=== PATIENT | female | born 1955 | race African-American/Black ===

== ENCOUNTER 2023-10-28 10:25 | Emergency (ER) | payer OTHER ==
[~2023-10-28] VITALS: Ht 175.3 cm; Wt 94.0 kg
[2023-10-28 10:35] VITALS: O2SAT 98
[2023-10-28] MEDS ORDERED: ACETAMINOPHEN 325MG TABLET PO ONE (12:30)
[2023-10-28] MEDS ORDERED: IBUPROFEN 600MG TABLET PO ONE (12:30)
[2023-10-28] MEDS ORDERED: IBUP-2028 MT (13:44)
[2023-10-28 17:00] VITALS: BP 165/89; PULSE 76; RESP 20; TEMP 98.3
== END 2023-10-28 19:04 | disposition home or self-care (01) ==
LOC: ER 10:25
DX: M54.50 Low back pain, unspecified (principal); I11.0 Hypertensive heart disease with heart failure; I50.9 Heart failure, unspecified; W18.39XA Other fall on same level, initial encounter; Y93.89 Activity, other specified; Y92.89 Other specified places as the place of occurrence of the external cause; Y99.8 Other external cause status
CPT/HCPCS: 72131; 99284

== ENCOUNTER 2023-12-11 15:22 | Emergency (ER) | payer OTHER ==
[~2023-12-11] VITALS: Ht 170.2 cm; Wt 91.0 kg
[~2023-12-11 15:22] MED LIST: IBUP-2028 MT
[2023-12-11 15:32] VITALS: O2SAT 98
[2023-12-11 16:00] VITALS: TEMP 98.7
[2023-12-11 16:33] LABS: BASOPHILS % 0.5 % (0.0-2.0); EOSINOPHILS % 0.1 % (0.0-5.0); HEMATOCRIT. 34.4 % (36.0-48.0); HEMOGLOBIN. 11.3 g/dL (12.0-16.0); LYMPHOCYTES % 16.4 % (20.0-50.0); MEAN CORPUSCULAR HEMOGLOBIN 29.9 pg (28.0-32.0); MEAN CORPUSCULAR HGB CONC 32.8 g/dL (31.0-37.0); MEAN CORPUSCULAR VOLUME 91.2 fL (81.0-99.0); MEAN PLATELET VOLUME 7.2 fl (7.4-10.4); MONOCYTES % 4.4 % (2.0-8.0); NEUTROPHILS % 78.6 % (40.0-76.0); PLATELET 247 x1000/uL (130-400); RED BLOOD CELL COUNT 3.77 mill/uL (4.2-5.4); RED CELL DISTRIBUTION WIDTH 15.6 % (11.6-14.6); WHITE BLOOD COUNT 8.1 x1000/uL (4.5-11.0)
[2023-12-11 16:53] LABS: ALANINE AMINOTRANSFERASE < 7 IU/L (10-49); ALBUMIN 4.1 g/dL (3.2-4.8); ASPARTATE AMINOTRANSFERASE 16 IU/L (<34); BILIRUBIN TOTAL 0.4 mg/dL (0.1-1.0); CALCIUM 9.2 mg/dL (8.7-10.4); CARBON DIOXIDE 26 mEq/L (21-32); CHLORIDE 103 mEq/L (98-107); CREATININE 2.4 mg/dL (0.6-1.0); GLUCOSE 139 mg/dL (70-105); POTASSIUM 4.3 mEq/L (3.5-5.1); PROTEIN TOTAL 7.4 g/dL (6.0-8.3); SODIUM 140 mEq/L (136-145); TROPONIN I HIGH SENSITIVITY 25 ng/L (3.0-34); UREA NITROGEN BLOOD 39 mg/dL (9-23)
[2023-12-11] MEDS ORDERED: SENN-257 MT (19:13)
[2023-12-11] MEDS ORDERED: POLY17PO3 MT (19:13)
[2023-12-11] MEDS ORDERED: FEO PR (19:13)
[2023-12-11 20:30] VITALS: BP 131/69; PULSE 75; RESP 13
== END 2023-12-11 21:03 | disposition home or self-care (01) ==
LOC: ER 15:22 → EDBEDREQ 18:09 → ER 21:03
DX: K59.00 Constipation, unspecified (principal); I11.0 Hypertensive heart disease with heart failure; I50.9 Heart failure, unspecified; E11.9 Type 2 diabetes mellitus without complications; Z20.822 Contact with and (suspected) exposure to COVID-19
CPT/HCPCS: 36415; 71045; 80053; 84484; 85025; 87426; 87804; 93005; 99285

== ENCOUNTER 2024-02-26 11:37 | Emergency (ER) | payer OTHER ==
[~2024-02-26] VITALS: Ht 165.1 cm; Wt 74.0 kg
[~2024-02-26 11:37] MED LIST changes: +FEO PR; +POLY17PO3 MT; +SENN-257 MT
[2024-02-26 11:40] VITALS: O2SAT 98
[2024-02-26 12:55] LABS: BASOPHILS % 0.8 % (0.0-2.0); EOSINOPHILS % 2.3 % (0.0-5.0); HEMATOCRIT. 31.3 % (36.0-48.0); HEMOGLOBIN. 10.6 g/dL (12.0-16.0); MEAN CORPUSCULAR VOLUME 91.1 fL (81.0-99.0); MEAN PLATELET VOLUME 6.9 fl (7.4-10.4); MONOCYTES % 5.6 % (2.0-8.0); NEUTROPHILS % 69.3 % (40.0-76.0); PLATELET 238 x1000/uL (130-400); RED BLOOD CELL COUNT 3.43 mill/uL (4.2-5.4); WHITE BLOOD COUNT 6.7 x1000/uL (4.5-11.0)
[2024-02-26 13:21] LABS: CHLORIDE 106 mEq/L (98-107); POTASSIUM 4.7 mEq/L (3.5-5.1); SODIUM 142 mEq/L (136-145)
[2024-02-26 13:22] LABS: CARBON DIOXIDE 29 mEq/L (21-32)
[2024-02-26 13:23] LABS: CALCIUM 9.2 mg/dL (8.7-10.4)
[2024-02-26 13:27] LABS: CREATININE 2.1 mg/dL (0.6-1.0); GLUCOSE 107 mg/dL (70-105); TROPONIN I HIGH SENSITIVITY 27 ng/L (3.0-34)
[2024-02-26 13:28] LABS: UREA NITROGEN BLOOD 31 mg/dL (9-23)
[2024-02-26 13:29] LABS: ALANINE AMINOTRANSFERASE < 7 IU/L (10-49); ASPARTATE AMINOTRANSFERASE 13 IU/L (<34)
[2024-02-26 13:30] LABS: BILIRUBIN TOTAL 0.5 mg/dL (0.1-1.0); PROTEIN TOTAL 7.6 g/dL (6.0-8.3)
[2024-02-26] MEDS: LIDOCAINE HCL 1% 20ML VIAL (Pyxis) INJ INFIL ONE (13:51)
[2024-02-26 13:53] LABS: PARTIAL THROMBOPLASTIN TIME 25.4 sec (23.4-31.0); PROTHROMBIN TIME 10.8 sec (9.6-11.0)
[2024-02-26] MEDS: HYDROCODONE/ACETAMINOPHEN 5/325MG TABLET PO ONE (14:30)
[2024-02-26 19:07] VITALS: BP 130/69; PULSE 66; RESP 14; TEMP 98
== END 2024-02-26 19:40 | disposition short-term general hospital (02) ==
LOC: ER 11:37
DX: S80.12XA Contusion of left lower leg, initial encounter (principal); I11.0 Hypertensive heart disease with heart failure; I50.9 Heart failure, unspecified; F03.90 Unspecified dementia, unspecified severity, without behavioral disturbance, psychotic disturbance, mood disturbance, and anxiety; E11.9 Type 2 diabetes mellitus without complications; Z86.73 Personal history of transient ischemic attack (TIA), and cerebral infarction without residual deficits; Z79.899 Other long term (current) drug therapy; N28.9 Disorder of kidney and ureter, unspecified; W18.39XA Other fall on same level, initial encounter; Y93.89 Activity, other specified; Y92.89 Other specified places as the place of occurrence of the external cause; Y99.8 Other external cause status
CPT/HCPCS: 99285; 10060; 71045; 80053; 83880; 85025; 85610; 85730; 84484; 73590; 36415; 93005; J3490